=== PATIENT | male | born 1965 | race Caucasian/White ===

== ENCOUNTER → 2017-08-19 | Outpatient (CLI) | payer OTHER ==
[~2017-08-19] MED LIST: GABAPENTIN100 MG PO; HYDROCODONE PO; MOTRIN800 MG PO; NAPROSYN250 MG PO; NOHOMEMEDS; PROTONIX40 MG PO
== END | disposition home or self-care (01) ==
LOC: CDC 09:32
DX: Z01.810 Encounter for preprocedural cardiovascular examination (principal); R94.31 Abnormal electrocardiogram [ECG] [EKG]
CPT/HCPCS: 93000